=== PATIENT | female | born 1985 | race Two or more races ===

== ENCOUNTER 2025-05-13 01:55 | Inpatient (IN) | payer OTHER ==
[~2025-05-13] VITALS: Ht 160 cm; Wt 1.8 kg
[2025-05-13] VITALS (10 sets, daily range): BP systolic 100–138; BP diastolic 62–83
[2025-05-13] MEDS ORDERED: BETAMETHASONE ACETATE,SOD PHOS 30 MG/5 ML ML IM ONE (02:15)
[2025-05-13] MEDS ORDERED: RINGERS SOLUTION,LACTATED 1,000 ML IV SCH (02:15)
[2025-05-13] MEDS ORDERED: AMPICILLIN SODIUM 2,000 MG VIAL IV ONE (02:15)
[2025-05-13] MEDS ORDERED: NIFEDIPINE 10 MG CAPSULE PO SCH (02:30)
[2025-05-13 03:15] LABS: BASO % 0.2 % (0.1-1.2); EOS # 0.11 (0.04-0.54); EOS % 0.9 % (0.7-7.0); LYMPH # 1.61 (1.18-3.74); LYMPH % 12.5 % (19.3-53.1); MEAN PLATELET VOLUME 11.10 fl (9.4-12.4); MONO # 0.86 (0.24-0.82); MONO % 6.7 % (4.7-12.5); NEUT # 10.22 (1.56-6.13); NEUT % 79.4 % (34.0-71.1); RED CELL DISTRIBUTION WIDTH 12.2 % (11.6-14.4)
[2025-05-13 03:22] LABS: URINE BILIRRUBIN Negative (NEGATIVE); URINE BLOOD Moderate; URINE GLUCOSE Negative (NEGATIVE); URINE KETONE 15 (NEGATIVE); URINE LEUKOCYTE Negative; URINE NITRATE Negative; URINE UROBILINOGEN 0.2 E.U./dl
[2025-05-13 03:25] LABS: URINE BACTERIA 2390.3 uL (0.0-1933); URINE EPITHELIAL CELLS 91.8 uL (0.0-38.8); URINE WBC 152.7 uL (0.0-23.2)
[2025-05-13 03:31] LABS: INR < 0.93
[2025-05-13 03:35] LABS: ALT/SGPT 21.0 U/L (12-78); AST/SGOT 17.0 U/L (15-37); BILIRUBIN TOTAL 0.22 mg/dL (0.3-1.2); BUN CREA RATIO 20.0 (7.0-25.0); CREATININE SERUM 0.59 mg/dL (0.55-1.02); GFR 112.32; GLOBULINA 3.0 G/DL (2.4-3.5); GLUCOSE FASTING 105.0 mg/dL (65-100); OSMOLALITY SERUM 281.0 MOSM/KG (275-295)
[2025-05-13 03:42] LABS: URINE CAST 0.00 uL (0.0-1.40); URINE COLOR RED; URINE PROTEIN 100 (NEGATIVE); URINE RBC > 10558.9 uL (0.0-20.8)
[2025-05-13 03:43] LABS: URINE APPEARANCE CLOUDY
[2025-05-13] MEDS ORDERED: AMPICILLIN SODIUM 1,000 MG VIAL IV SCH (04:00)
[2025-05-13] MEDS ORDERED: NIFEDIPINE 20 MG CAPSULE PO SCH (05:00)
[2025-05-13] MEDS ORDERED: PRENATAL TABLE1 EAC1 PO (07:44)
[2025-05-13] MEDS ORDERED: ERYTHROMYCIN BASE OPHT 1GM EACH TUBE OP ONE ×2 (09:27→14:15)
[2025-05-13] MEDS ORDERED: OXYTOCIN 20 UNITS/1000ML RL PIGGYBAG IV ONE (09:27)
[2025-05-13] MEDS ORDERED: CHLORHEXIDINE GLUCONATE 120 ML BOTTLE TOP ONE (09:27)
[2025-05-13] MEDS ORDERED: LIDOCAINE HCL 1% 10ML VIAL ONE (09:27)
[2025-05-13] MEDS ORDERED: OXYTOCIN 500 ML IV ONE (09:45)
[2025-05-13] MEDS ORDERED: LIDOCAINE HCL 1% 10ML VIAL IJ ONE (14:15)
[2025-05-13] MEDS ORDERED: CHLORHEXIDINE GLUCONATE 120 ML BOTTLE TOP SCH (14:15)
[2025-05-13] MEDS ORDERED: OXYTOCIN 1,000 ML IV SCH (14:15)
[2025-05-14 01:45] VITALS: BP 104/75
[2025-05-14] MEDS ORDERED: BETAMETHASONE ACETATE,SOD PHOS 30 MG/5 ML ML IM NR (02:15)
[2025-05-14 06:55] LABS: BASO % 0.2 % (0.1-1.2); EOS # 0.01 (0.04-0.54); EOS % 0.1 % (0.7-7.0); LYMPH # 2.13 (1.18-3.74); LYMPH % 16.7 % (19.3-53.1); MEAN PLATELET VOLUME 11.00 fl (9.4-12.4); MONO # 0.92 (0.24-0.82); MONO % 7.2 % (4.7-12.5); NEUT # 9.60 (1.56-6.13); NEUT % 75.3 % (34.0-71.1); RED CELL DISTRIBUTION WIDTH 12.3 % (11.6-14.4)
[2025-05-14 08:00] VITALS: BP 107/72
[2025-05-14 16:25] VITALS: BP 107/74
[2025-05-14] MEDS ORDERED: LORATADINE 10 MG TABLET PO SCH (20:41)
[2025-05-14 21:27] VITALS: BP 120/77
[2025-05-15 00:10] VITALS: BP 110/71
[2025-05-15 08:10] VITALS: BP 119/76
[2025-05-15 13:03] VITALS: BP 115/76
[2025-05-15 16:26] VITALS: BP 115/77
== END 2025-05-15 18:59 | disposition home or self-care (01) | DRG 805 ==
LOC: LDR 01:55 → OB/GYN 01:55 → LDR 07:44 → OB/GYN 13:58
PROVIDERS: Obstetrics & Gynecology; ADMIT Student in an Organized Health Care Education/Training Program; ATTEND Student in an Organized Health Care Education/Training Program
PROC: 10E0XZZ Delivery of Products of Conception, External Approach (ICD-10-PCS; principal; 2025-05-13)
PROC: 0UQG7ZZ Repair Vagina, Via Natural or Artificial Opening (ICD-10-PCS; 2025-05-13)
PROC: 0UQMXZZ Repair Vulva, External Approach (ICD-10-PCS; 2025-05-13)
PROC: 4A1HXCZ Monitoring of Products of Conception, Cardiac Rate, External Approach (ICD-10-PCS; 2025-05-13)
DX: O71.4 Obstetric high vaginal laceration alone (principal); O71.82 Other specified trauma to perineum and vulva; O60.14X0 Preterm labor third trimester with preterm delivery third trimester, not applicable or unspecified; Z37.0 Single live birth; Z3A.34 34 weeks gestation of pregnancy